=== PATIENT | female | born 1950 | race Caucasian/White ===

== ENCOUNTER → 2016-03-19 | Outpatient (CLI) | payer OTHER ==
[~2016-03-19] MED LIST: IOPAMIDOL (ISOVUE-300) 100 ML BTL IV ONE
[2016-03-19 15:35] LABS: CREATININE 0.7 mg/dL (0.6-1.0); GLOMERULAR FILTRATION RATE > 60
--- NOTE | 2016-03-19 19:34 | CT ---
CT Scan of the Abdomen and Pelvis (With Contrast) at 1639 hours History: R10.32 - LEFT LOWER QUADRANT PAIN, R53.82 - CHRONIC FATIGUE, S06.9X9A -TBI (TRAUMATIC BRAI N INJURY, M79.7 - FIBROMYALGIA SYNDROME, CHRONIC WORSENING LLQ PAIN NEAR ILIAC CREST, HX OF PELVIC PAIN WITHOUT ETIOLOGY FOUND, ASSESS FOR INFLAMMATION/MASS. Comparison: None. Technique: Axial computed tomographic images of the abdomen and pelvis were obtained with the unevent ful intravenous administration of 90 mL Isovue-300 contrast. No oral or rectal contrast which limits the study. Dose reduction techniques were utilized. Findings CT Abdomen Findings: Lung bases: No pleural effusion. Liver: Normal. Biliary system: No obstruction. Spleen: Normal. Pancreas: Normal. Adrenals: Normal. Kidneys: No obstruction or solid masses. Abdominal Aorta: Mild atherosclerotic aorta without aneurysm. No bowel obstruction, ascites, or significant retroperitoneal lymphadenopathy. CT Pelvis Findings: Oral contrast in the small bowel and colon without obstruction. No evidence of di verticulitis. No pelvic fluid collections. No destructive osseous lesions. Appendix appears normal wi thout inflammatory changes. Impression: 1. Atherosclerotic aorta without aneurysm. 2. No bowel obstruction, diverticulitis, pneumoperitoneum or drainable abscess. 3. No hepatosplenomegaly or ascites. 4. No urinary tract obstruction. 5. No evidence of appendicitis or inflammatory changes. 6. Consider screening colonoscopy when the patient's medical condition permits.
== END ==
LOC: FIMAGING 14:55
PROVIDERS: ATTEND Internal Medicine Geriatric Medicine
DX: I70.0 Atherosclerosis of aorta (principal); R10.32 Left lower quadrant pain; R53.82 Chronic fatigue, unspecified; S06.9X9A Unspecified intracranial injury with loss of consciousness of unspecified duration, initial encounter; M79.7 Fibromyalgia
CPT/HCPCS: 74177; Q9967